=== PATIENT | male | born 1950 | race Caucasian/White ===

== ENCOUNTER 2017-07-11 21:48 | Observation (INO) | payer MEDICAID, OTHER ==
[~2017-07-11] VITALS: Ht 170.2 cm; Wt 72.0 kg
[~2017-07-11 21:48] MED LIST: ASPI81CH CHEW; ATOR40TA16 PO; CARV3.12 PO; CITA40TA4 PO; CLON1TAB PO; DICL1GEL TOPICAL; HYDR-3533 PO; IPRAAER INH; LISI2.5T3 PO; NORC5TAB PO; SPIRCAP INH; SYMB160A INH; TAMS5CAP PO; TIMO0.255 EACH EYE; WALKER WHEELS/F1 MIS
[2017-07-11 21:54] VITALS: BP 135/69; PULSE 59; RESP 18; TEMP 98.9; O2SAT 99
[2017-07-11 21:55] VITALS: RESP 18; O2SAT 97
[2017-07-11] MEDS ORDERED: SODIUM CHLORIDE 0.9% FLUSH 10 ML FLUSH IVF PRN (22:30)
--- NOTE | 2017-07-11 23:05 | RADRPT ---
EXAM DATE/TIME: 07/11/2017 22:34 [facility] COMPARISON: No previous studies available for comparison. INDICATIONS : Weakness, left sided facial numbness. RADIATION DOSE: 69.15 CTDIvol (mGy) MEDICAL HISTORY : Hypertension. SURGICAL HISTORY : cervical fusion, neuro stimulator ENCOUNTER: Initial ACUITY: 1 day PAIN SCALE: 7/10 LOCATION: cranial TECHNIQUE: Multiple contiguous axial images were obtained of the head. Using automated exposure control and adj ustment of the mA and/or kV according to patient size, radiation dose was kept as low as reasonably a chievable to obtain optimal diagnostic quality images. DICOM format image data is available electro nically for review and comparison. FINDINGS: CEREBRUM: The ventricles are normal for age. No evidence of midline shift, mass lesion, hemorrhage or acute in farction. No extra-axial fluid collections are seen. POSTERIOR FOSSA: The cerebellum and brainstem are intact. The 4th ventricle is midline. The cerebellopontine angle i s unremarkable. EXTRACRANIAL: There is opacification of the left frontal sinus and chronic appearing sclerotic change involving the left mastoid SKULL: The calvaria is intact. No evidence of skull fracture. CONCLUSION: No acute intracranial findings. Sinus and left-sided mastoid disease Juliocesar Poole MD on July 11, 2017 at 23:02 Board Certified Radiologist. This report was verified electronically.
[2017-07-11 23:40] LABS: AUTOMATED NEUTROPHIL # 4.6 TH/MM3 (1.8-7.7); BASOPHIL # 0.1 TH/MM3 (0-0.2); BASOPHIL % 1.4 % (0.0-2.0); EOSINOPHIL # 0.3 TH/MM3 (0-0.4); HEMATOCRIT 33.7 % (39.0-51.0); HEMO FLAGS DIFF FINAL; LYMPH % 26.3 % (9.0-44.0); LYMPHOCYTE # 2.1 TH/MM3 (1.0-4.8); MEAN CELL VOLUME 94.8 FL (80.0-100.0); MEAN CORPUSCULAR HEMOGLOBIN 31.2 PG (27.0-34.0); MEAN CORPUSCULAR HGB CONC 32.9 % (32.0-36.0); MONO % 9.9 % (0.0-8.0); NEUT % 58.4 % (16.0-70.0); PLATELET COUNT 218 TH/MM3 (150-450); RED BLOOD COUNT 3.55 MIL/MM3 (4.50-5.90); RED CELL DISTRIBUTION WIDTH 14.1 % (11.6-17.2); WHITE BLOOD COUNT 7.9 TH/MM3 (4.0-11.0)
[2017-07-11 23:51] LABS: APTT (PATIENT) 31.5 SEC (24.3-30.1); PROTHROMBIN TIME - PATIENT 10.5 SEC (9.8-11.6)
[2017-07-12] VITALS (9 sets, daily range): BP systolic 99–124; BP diastolic 55–62; PULSE 65–81; RESP 17–21; TEMP 97.9–98.7; O2SAT 94–98
[2017-07-12 00:02] LABS: BICARBONATE 30.7 MEQ/L (21.0-32.0); POTASSIUM 3.5 MEQ/L (3.5-5.1)
--- NOTE | 2017-07-12 01:08 | PD ---
HPI Chief Complaint: Numbness/Tingling Time Seen by Provider: 22:34 Travel History International Travel<30 days: No Contact w/Intl Traveler<30days: No Traveled to known affect area: No History of Present Illness HPI 67-year-old male complains of numbness sensation in the left side of face and left hand. Patient has history of chronic neck pain with intermittent numbness on the left hand in the past. Patient states that the numbness sensation left face is new this evening. Patient states that he started having numbness sensation on the left side of face about an hour and a half prior to coming to the emergency room. Patient states that the numbness sensation in the left side of face involving the forehead and cheek area. Patient states that the numbness sensation resolving since then. Patient states that he only has a small area of numbness on the left cheek now. Patient denies any headache. Patient denies any visual change. Patient states that he has intermittent numbness on the left hand intermittent since 2004. Patient status post C3-C4 cervical spine fusion. Patient has history hypertension, hyperlipidemia. Patient quit smoking many years ago. Patient taking aspirin 81 mg daily. PFSH Past Medical History Anxiety: Yes High Cholesterol: Yes COPD: Yes Diminished Hearing: No Hypertension: Yes Musculoskeletal: Yes (chronic pain) Tetanus Vaccination: Unknown Influenza Vaccination: Yes Past Surgical History Neurologic Surgery: Yes (neuro stimulator) Thoracic Surgery: Yes (L4 & L5 laminectomy) Other Surgery: Yes (MORPHINE PUMP) Social History Alcohol Use: No Tobacco Use: No Substance Use: No Allergies-Medications (Allergen,Severity, Reaction): Coded Allergies: MRI PRECAUTION (Verified Adverse Reaction, Severe, 07/12/17) Patient has a non compatible neurostimulator. Patient has a Rizwan mini [place] neurostimulator. eg/07/12/2017 Reported Meds & Prescriptions Reported Meds & Active Scripts Active Walker with Front Wheels (Device) 1 Mis Mis 1 Ea .XX DIRECTED PRN [place] (Hydrocodone-Acetaminophen) 5-325 mg Tab 1 Tab PO Q6H PRN Reported Vistaril (Hydroxyzine Pamoate) 25 Mg Cap 25 Mg PO HS Spiriva Handihaler (Tiotropium Inh) 18 Mcg Cap 18 Mcg INH DAILY 1 capsule = 18 mcg Combivent Respimat Inh (Ipratropium-Albuterol Inh) 20-100 Alf/Act Aero 1 Puff INH QID Citalopram (Citalopram Hydrobromide) 40 Mg Tab 40 Mg PO DAILY Atorvastatin (Atorvastatin Calcium) 40 Mg Tab 40 Mg PO HS Lisinopril 2.5 Mg Tab 2.5 Mg PO DAILY Carvedilol 3.125 Mg Tab 3.125 Mg PO BID Voltaren Topical (Diclofenac Topical) 1% Gel 1 Applic TOPICAL QID Flomax (Tamsulosin HCl) 0.4 Mg Cap 0.4 Mg PO HS Aspirin 81 Mg Chew 81 Mg CHEW DAILY Review of Systems General / Constitutional: No: Fever Eyes: No: Visual changes HENT: No: Headaches Cardiovascular: No: Chest Pain or Discomfort Respiratory: No: Shortness of Breath Gastrointestinal: No: Abdominal Pain Genitourinary: No: Dysuria Musculoskeletal: No: Pain Skin: No Rash Neurologic: No: Weakness Psychiatric: No: Depression Endocrine: No: Polydipsia Hematologic/Lymphatic: No: Easy Bruising Physical Exam Narrative GENERAL: Well-nourished, well-developed patient. SKIN: Focused skin assessment warm/dry. HEAD: Normocephalic. EYES: No scleral icterus. No injection or drainage. NECK: Supple, trachea midline. No JVD or lymphadenopathy. CARDIOVASCULAR: Regular rate and rhythm without murmurs, gallops, or rubs. RESPIRATORY: Breath sounds equal bilaterally. No accessory muscle use. GASTROINTESTINAL: Abdomen soft, non-tender, nondistended. MUSCULOSKELETAL: No cyanosis, or edema. BACK: Nontender without obvious deformity. No CVA tenderness. Neurologic exam: Patient awake and alert oriented 3. Patient has mild decrease in light touch sensation on the left cheek area and left hand. Full range motion of all extremity. Data Data Last Documented VS Vital Signs Date Time Temp Pulse Resp B/P (MAP) Pulse Ox O2 Delivery O2 Flow Rate FiO2 07/12/17 00:32 67 18 99/58 (72) 98 Room Air 07/11/17 21:54 98.9 Orders Orders Electrocardiogram (07/11/17 22:30) Prothrombin Time / Inr (Pt) (07/11/17 22:30) Act Partial Throm Time (Ptt) (07/11/17 22:30) Complete Blood Count With Diff (07/11/17 22:30) Basic Metabolic Panel (Bmp) (07/11/17 22:30) Ct Brain W/O Iv Contrast(Rout) (07/11/17 22:30) Ecg Monitoring (07/11/17 22:30) Iv Access Insert/Monitor (07/11/17 22:30) Oximetry (07/11/17 22:30) Sodium Chloride 0.9% Flush (Ns Flush) (07/11/17 22:30) Consult Neurology (07/12/17 ) Cta Brain W Iv Contrast W 3d (07/12/17 ) Cta Neck W Iv Contrast W 3d (07/12/17 ) Aspirin (Aspirin) (07/12/17 02:00) Clopidogrel (Plavix) (07/12/17 02:00) (Hub Use Only)Inp Phy Cons/Ref (07/12/17 ) Admit Order (Ed Use Only) (07/12/17 02:10) Labs Laboratory Tests Test 07/11/17 23:23 White Blood Count 7.9 TH/MM3 Red Blood Count 3.55 MIL/MM3 Hemoglobin 11.1 GM/DL Hematocrit 33.7 % Mean Corpuscular Volume 94.8 FL Mean Corpuscular Hemoglobin 31.2 PG Mean Corpuscular Hemoglobin Concent 32.9 % Red Cell Distribution Width 14.1 % Platelet Count 218 TH/MM3 Mean Platelet Volume 8.7 FL Neutrophils (%) (Auto) 58.4 % Lymphocytes (%) (Auto) 26.3 % Monocytes (%) (Auto) 9.9 % Eosinophils (%) (Auto) 4.0 % Basophils (%) (Auto) 1.4 % Neutrophils # (Auto) 4.6 TH/MM3 Lymphocytes # (Auto) 2.1 TH/MM3 Monocytes # (Auto) 0.8 TH/MM3 Eosinophils # (Auto) 0.3 TH/MM3 Basophils # (Auto) 0.1 TH/MM3 CBC Comment DIFF FINAL Differential Comment Prothrombin Time 10.5 SEC Prothromb Time International Ratio 1.0 RATIO Activated Partial Thromboplast Time 31.5 SEC Blood Urea Nitrogen 12 MG/DL Creatinine 0.81 MG/DL Random Glucose 100 MG/DL Calcium Level 8.2 MG/DL Sodium Level 137 MEQ/L Potassium Level 3.5 MEQ/L Chloride Level 102 MEQ/L Carbon Dioxide Level 30.7 MEQ/L Anion Gap 4 MEQ/L Estimat Glomerular Filtration Rate 96 ML/MIN MDM Medical Decision Making Medical Screen Exam Complete: Yes Emergency Medical Condition: Yes Interpretation(s) Last Impressions Head CT 07/11/170 Signed Impressions: Service Date/Time: Tuesday, July 11, 2017 22:34 - CONCLUSION: No acute intracranial findings. Sinus and left-sided mastoid disease Juliocesar Poole MD 1:07 AM. CBC within normal limit. BMP within normal limit. Differential Diagnosis Differential diagnosis including neuralgia, TIA, CVA. Narrative Course 67-year-old male with transient left-sided facial numbness and left hand numbness. Diagnosis Primary Impression: TIA (transient ischemic attack) Qualified Codes: G45.9 - Transient cerebral ischemic attack, unspecified Additional Impression: Neuralgia Admitting Information Admitting Physician Requests: Observation Fabien Woodward MD Jul 12, 2017 01:08
[2017-07-12] MEDS ORDERED: CLOPIDOGREL 75 MG TAB PO ONE (02:00)
[2017-07-12] MEDS ORDERED: ASPIRIN 325 MG TAB PO ONE (02:00)
[2017-07-12] MEDS ORDERED: VIST25CA PO (02:16)
[2017-07-12] MEDS ORDERED: GLUCAGON 1 MG/ML VIAL OTHER PRN (02:30)
[2017-07-12] MEDS ORDERED: DEXTROSE 50% IN WATER 50 ML VIAL(D50) IV PUSH PRN (02:30)
[2017-07-12] MEDS ORDERED: SODIUM CHLORIDE 0.9% FLUSH 5 ML FLUSH IV FLUSH PRN (02:30)
[2017-07-12] MEDS ORDERED: IOHEXOL 350 MG/ML 10 ML VIAL (for RAD DIAG) IVCONTRAST ONE (02:32)
--- NOTE | 2017-07-12 03:08 | RADRPT ---
EXAM DATE/TIME: 07/12/2017 02:29 [facility] COMPARISON: CT BRAIN W/O CONTRAST, July 11, 2017, 22:34. INDICATIONS : Left side facial numbness for one day, evaluate for thrombosis. IV CONTRAST: 75 cc Omnipaque 350 (iohexol) IV ; Cumulative dose for multiple exams. RADIATION DOSE: 28.69 CTDIvol (mGy) ; Combined studies MEDICAL HISTORY : Hypertension. SURGICAL HISTORY : cervical fusion, neurostimulator ENCOUNTER: Initial ACUITY: 1 day PAIN SCALE: 6/10 LOCATION: neck Elevated flow velocities and ICA/CCA ratios have been found to correlate with increased degrees of vessel stenosis, calculated as percentage of diameter relative to a normal segment of distal ICA/CCA. TECHNIQUE: Volumetric scanning was performed using a multirow detector CT scanner. The data was post processed with a variety of visualization algorithms including full-volume maximum intensity projection, multip lanar sliding thin-slab reformation, curved-planar reformation, and surface-rendering techniques. Us ing automated exposure control and adjustment of the mA and/or kV according to patient size, radiatio n dose was kept as low as reasonably achievable to obtain optimal diagnostic quality images. DICOM f ormat image data is available electronically for review and comparison. FINDINGS: AORTIC ARCH: There is a three-vessel origin of the great vessels from the aorta. No evidence of ostial narrowing. RIGHT CAROTID: The common carotid artery is intact. The carotid bulb has a normal configuration without ulceration o r narrowing. The internal carotid artery lumen is smooth without stenosis. The external carotid altaf ry is intact. LEFT CAROTID: The common carotid artery is intact. The carotid bulb has a normal configuration without ulceration or narrowing. The internal carotid artery lumen is smooth without stenosis. The external carotid ar leo is intact. VERTEBRALS: The vertebral arteries are patent bilaterally. The left side is diminutive.. CONCLUSION: No evidence of carotid stenosis. Juliocesar Poole MD on July 12, 2017 at 3:03 Board Certified Radiologist. This report was verified electronically.
--- NOTE | 2017-07-12 03:10 | RADRPT ---
EXAM DATE/TIME: 07/12/2017 02:29 [facility] COMPARISON: No previous studies available for comparison. INDICATIONS : Left side facial numbness for one day, evaluate for thrombosis. IV CONTRAST: 75 cc Omnipaque 350 (iohexol) IV ; Cumulative dose for multiple exams. RADIATION DOSE: 28.69 CTDIvol (mGy) ; Combined studies MEDICAL HISTORY : Hypertension. SURGICAL HISTORY : neurostimulator, cervical fusion ENCOUNTER: Initial ACUITY: 1 day PAIN SCALE: 4/10 LOCATION: cranial TECHNIQUE: Volumetric scanning was performed using a multi-row detector CT scanner. The data was post processed with a variety of visualization algorithms including full volume maximum intensity projection, multi -planar sliding thin slab reformation, curved planar reformation, and surface rendering techniques. Using automated exposure control and adjustment of the mA and/or kV according to patient size, radiat ion dose was kept as low as reasonably achievable to obtain optimal diagnostic quality images. DICO M format image data is available electronically for review and comparison. FINDINGS: There is excellent visualization of the major intracranial arteries out to the second-order branch ve ssels. There is no evidence for aneurysm, vessel truncation or stenosis, and no evidence for vascula r malformation. The left posterior cerebral artery arises in fashion. CONCLUSION: Normal study Juliocesar Poole MD on July 12, 2017 at 3:07 Board Certified Radiologist. This report was verified electronically.
--- NOTE | 2017-07-12 05:33 | HHI.HP ---
HPI Service [facility] Primary [facility] Physician Unknown Admission Diagnosis TIA. Neuralgia. Diagnoses: Chief Complaint: Left facial numbness Travel History International Travel<30 Days: No Contact w/Intl Traveler <30 Da: No Traveled to Known Affected Are: No History of Present Illness Written by MANUEL Foley acting as scribe for [Kapil] on 07/12/17 at 05 :26. 67 y/o male with a history of HTN, HLD, COPD, and a pH presented to the ED with complaints of left facial numbness. He states he woke up about 8:30 PM and his left face, forehead and jaw were numb. He felt lethargic and had trouble speaking. Upon arrival to ER his symptoms resolved slightly and currently he is , acting normal. He does complain of numbness and tingling and both his hands, but this is not new for him. He denies any chest pain, shortness breath, fever or chills. He states he follows with Dr. Whitaker for neurology. Review of Systems Except as stated in HPI: all other systems reviewed are Neg Past Family Social History Past Medical History HTN COPD BPH HLD Past Surgical History C4-T1 fusion Trieger finger surgery Bilateral hip replacement Nasal surgery Appendectomy Reported Medications Reported Meds & Active Scripts Active Walker with Front Wheels (Device) 1 Mis Mis 1 Ea .XX DIRECTED PRN [place] (Hydrocodone-Acetaminophen) 5-325 mg Tab 1 Tab PO Q6H PRN Reported Vistaril (Hydroxyzine Pamoate) 25 Mg Cap 25 Mg PO HS Spiriva Handihaler (Tiotropium Inh) 18 Mcg Cap 18 Mcg INH DAILY 1 capsule = 18 mcg Combivent Respimat Inh (Ipratropium-Albuterol Inh) 20-100 Chcf/Act Aero 1 Puff INH QID Citalopram (Citalopram Hydrobromide) 40 Mg Tab 40 Mg PO DAILY Atorvastatin (Atorvastatin Calcium) 40 Mg Tab 40 Mg PO HS Lisinopril 2.5 Mg Tab 2.5 Mg PO DAILY Carvedilol 3.125 Mg Tab 3.125 Mg PO BID Voltaren Topical (Diclofenac Topical) 1% Gel 1 Applic TOPICAL QID Flomax (Tamsulosin HCl) 0.4 Mg Cap 0.4 Mg PO HS Aspirin 81 Mg Chew 81 Mg CHEW DAILY Allergies: Coded Allergies: No Known Allergies (Unverified , 07/11/17) Active Ordered Medications Current Medications Medications (Trade) Dose Ordered Sig/Arlene Route Start Time Stop Time Status Last Admin (NS Flush) 2 ml UNSCH PRN IVF 07/11/17 22:30 (NS Flush) 2 ml BID IV FLUSH 07/12/17 09:00 (NS Flush) 2 ml UNSCH PRN IV FLUSH 07/12/17 02:30 (NovoLOG SUPPLEMENTAL SCALE) 1 ACHS SQ 07/12/17 08:00 (D50w (Vial) Inj) 50 ml UNSCH PRN IV PUSH 07/12/17 02:30 (Glucagon Inj) 1 mg UNSCH PRN OTHER 07/12/17 02:30 Family History Family history significant for DM and heart disease Social History Tobacco use: Quit 10 years ago Alcohol use: Quit 10 years ago Physical Exam Vital Signs Vital Signs Date Time Temp Pulse Resp B/P (MAP) Pulse Ox O2 Delivery O2 Flow Rate FiO2 07/12/17 03:27 98.7 68 17 106/55 (72) 95 07/12/17 03:00 07/12/17 00:32 67 18 99/58 (72) 98 Room Air 07/11/17 21:55 18 97 Room Air 07/11/17 21:54 98.9 59 18 135/69 (91) 99 Physical Exam GENERAL: This is a well-nourished, well-developed patient, in no apparent distress. SKIN: No rashes, ecchymoses or lesions. Cool and dry. HEAD: Atraumatic. Normocephalic. EYES: Pupils equal round and reactive. ENT: Nose without bleeding, purulent drainage or septal hematoma. Airway patent. NECK: Trachea midline. No JVD or lymphadenopathy. CARDIOVASCULAR: Regular rate and rhythm without murmurs, gallops, or rubs. RESPIRATORY: Clear to auscultation. Breath sounds equal bilaterally. No wheezes , rales, or rhonchi. GASTROINTESTINAL: Abdomen soft, non-tender, nondistended. No guarding. MUSCULOSKELETAL: +1 bilateral lower extremity edema. No joint tenderness, effusion, or edema noted. No calf tenderness. NEUROLOGICAL: Awake and alert. Cranial nerves II through XII intact. Motor and sensory grossly within normal limits. 4 out of 5 muscle strength in left upper extremity. 5 Out of 5 muscle strength in all other muscle groups. Normal speech. Laboratory Laboratory Tests Test 07/11/17 23:23 White Blood Count 7.9 Red Blood Count 3.55 Hemoglobin 11.1 Hematocrit 33.7 Mean Corpuscular Volume 94.8 Mean Corpuscular Hemoglobin 31.2 Mean Corpuscular Hemoglobin Concent 32.9 Red Cell Distribution Width 14.1 Platelet Count 218 Mean Platelet Volume 8.7 Neutrophils (%) (Auto) 58.4 Lymphocytes (%) (Auto) 26.3 Monocytes (%) (Auto) 9.9 Eosinophils (%) (Auto) 4.0 Basophils (%) (Auto) 1.4 Neutrophils # (Auto) 4.6 Lymphocytes # (Auto) 2.1 Monocytes # (Auto) 0.8 Eosinophils # (Auto) 0.3 Basophils # (Auto) 0.1 CBC Comment DIFF FINAL Differential Comment Prothrombin Time 10.5 Prothromb Time International Ratio 1.0 Activated Partial Thromboplast Time 31.5 Blood Urea Nitrogen 12 Creatinine 0.81 Random Glucose 100 Calcium Level 8.2 Sodium Level 137 Potassium Level 3.5 Chloride Level 102 Carbon Dioxide Level 30.7 Anion Gap 4 Estimat Glomerular Filtration Rate 96 Result Diagram: 07/11/17232207/11/172322 Imaging Last Impressions Neck CTA 07/12/17 0000 Signed Impressions: Service Date/Time: July 02:29 - CONCLUSION: No evidence of carotid stenosis. Juliocesar Poole MD Head CTA 07/12/17 0000 Signed Impressions: Service Date/Time: July 02:29 - CONCLUSION: Normal study Juliocesar Poole MD Head CT 07/11/170 Signed Impressions: Service Date/Time: Tuesday, July 11, 2017 22:34 - CONCLUSION: No acute intracranial findings. Sinus and left-sided mastoid disease MD Sigifredo Bhatia VTE Risk Assessment Caprini VTE Risk Assessment: Mod/High Risk (score >= 2) Caprini Risk Assessment Model Point Value = 1 Point Value = 2 Point Value = 3 Point Value = 5 Age 41-60 Minor surgery BMI > 25 kg/m2 Swollen legs Varicose veins or History of unexplained or recurrent spontaneous Oral contraceptives or hormone replacement Sepsis (< 1 month) Serious lung disease, including pneumonia (< 1 month) Abnormal pulmonary function Acute myocardial infarction Congestive heart failure (< 1 month) History of inflammatory bowel disease Medical patient at bed rest Age 61-74 Arthroscopic surgery Major open surgery (> 45 min) Laparoscopic surgery (> 45 min) Malignancy Confined to bed (> 72 hours) Immobilizing plaster cast Central venous access Age >= 75 History of VTE Family history of VTE Factor V Leiden Prothrombin [id number] Lupus anticoagulant Anticardiolipin antibodies Elevated serum homocysteine Heparin-induced thrombocytopenia Other congenital or acquired thrombophilia Stroke (< 1 month) Elective arthroplasty Hip, pelvis, or leg fracture Acute spinal cord injury (< 1 month) Prophylaxis Regimen Total Risk Factor Score Risk Level Prophylaxis Regimen 0-1 Low Early ambulation 2 Moderate Order ONE of the following: *Sequential Compression Device (SCD) *Heparin 5000 units SQ BID 3-4 Higher Order ONE of the following medications: *Heparin 5000 units SQ TID *Enoxaparin/Lovenox 40 mg SQ daily (WT < 150 kg, CrCl > 30 mL/min) *Enoxaparin/Lovenox 30 mg SQ daily (WT < 150 kg, CrCl > 10-29 mL/min) *Enoxaparin/Lovenox 30 mg SQ BID (WT < 150 kg, CrCl > 30 mL/min) AND/OR *Sequential Compression Device (SCD) 5 or more Highest Order ONE of the following medications: *Heparin 5000 units SQ TID (Preferred with Epidurals) *Enoxaparin/Lovenox 40 mg SQ daily (WT < 150 kg, CrCl > 30 mL/min) *Enoxaparin/Lovenox 30 mg SQ daily (WT < 150 kg, CrCl > 10-29 mL/min) *Enoxaparin/Lovenox 30 mg SQ BID (WT < 150 kg, CrCl > 30 mL/min) AND *Sequential Compression Device (SCD) Assessment and Plan Problem List: (1) TIA (transient ischemic attack) ICD Code: G45.9 - Transient cerebral ischemic attack, unspecified Status: Acute (2) Neuralgia ICD Code: M79.2 - Neuralgia and neuritis, unspecified Status: Acute Assessment and Plan 67 y/o male with a history of HTN, HLD, COPD, and a BPH presented to the ED with complaints of left facial numbness. TIA with neuralgia Head CT reviewed and shows no acute abnormalities. CTA neck reviewed and is unremarkable, CTA head reviewed and is unremarkable. -2-D echo ordered -Consult neurology for recommendations -Lipid profile ordered -Neuro checks Parkinson's, currently being worked up -Will order home medications once verified by pharmacy, patient is unsure of dosage Hypertension, chronic -Allow for permissive hypertension until evaluated by neurology DVT prophylaxis: SCDs Discussed Condition With Patient and RN Problem Qualifiers (1) TIA (transient ischemic attack): Qualified Codes: G45.9 - Transient cerebral ischemic attack, unspecified Beba Stein Jul 12, 2017 05:33
[2017-07-12] MEDS ORDERED: ACETAMINOPHEN/HYDROcodone 325 MG/5 MG TAB PO PRN (07:45)
[2017-07-12] MEDS: INSULIN ASPART SUPPLEMENTAL SCALE SQ SCH ×4 (08:00→21:00)
[2017-07-12] MEDS: SODIUM CHLORIDE 0.9% FLUSH 5 ML FLUSH IV FLUSH SCH ×2 (09:00→21:00)
[2017-07-12] MEDS: CITALOPRAM HYDROBROMIDE 40 MG TAB PO SCH (09:59)
[2017-07-12] MEDS: ASPIRIN 81 MG CHEW TAB CHEW SCH (09:59)
[2017-07-12] MEDS: SODIUM CHLOR 0.9% 1000 ML INJ 1,000 ML IV SCH ×2 (10:00→19:40)
[2017-07-12] MEDS: TIOTROPIUM BROMIDE 18 MCG INH INH SCH (10:00)
[2017-07-12] MEDS: ALBUTEROL SULFATE 90 MCG/ACT HFA 8 GM INHALER INH SCH ×4 (10:00→21:34)
--- NOTE | 2017-07-12 12:13 | EKG ---
Date Performed: 07/11/2017 Time Performed: 23:25:15 PTAGE: 67 years EKG: Sinus rhythm LOW QRS VOLTAGE IN PRECORDIAL LEADS SEPTAL MYOCARDIAL INFARCTION ABNORMAL ECG NO PREVIOUS TRACING DOCTOR: Emeli Hoffmann Interpretating Date/Time 07/12/2017 12:11:35
--- NOTE | 2017-07-12 12:32 | HHI.PR ---
Subjective Remarks Follow-up for transient left facial paresthesias. The patient states that he has chronic neck and spine problems and has chronic tingling of his fingers. He states that yesterday evening about 5 PM he took a [place] and a Vistaril. He states he went to sleep about 8 PM and woke up about 8:30 noticing tingling on the left side of his face with possible slurred speech. He states the symptoms lasted approximately 45 minutes and have resolved. He denies any swallowing difficulties. He did have his Klonopin changed from scheduled to as needed about a week ago in favor of Vistaril. Otherwise recent medication changes included stopping Aricept 2 weeks ago and starting Sinemet. Agreeable for [facility]. Objective Vitals Vital Signs Date Time Temp Pulse Resp B/P (MAP) Pulse Ox O2 Delivery O2 Flow Rate FiO2 07/12/17 12:07 97.9 73 18 124/62 (82) 98 07/12/17 08:06 98.4 70 18 113/58 (76) 95 07/12/17 03:27 98.7 68 17 106/55 (72) 95 07/12/17 03:00 07/12/17 00:32 67 18 99/58 (72) 98 Room Air 07/11/17 21:55 18 97 Room Air 07/11/17 21:54 98.9 59 18 135/69 (91) 99 Result Diagram: 07/11/17232207/11/172322 Imaging Last Impressions Neck CTA 07/12/17 0000 Signed Impressions: Service Date/Time: July 02:29 - CONCLUSION: No evidence of carotid stenosis. Juliocesar Poole MD Head CTA 07/12/17 0000 Signed Impressions: Service Date/Time: July 02:29 - CONCLUSION: Normal study Juliocesar Poole MD Head CT 07/11/170 Signed Impressions: Service Date/Time: Tuesday, July 11, 2017 22:34 - CONCLUSION: No acute intracranial findings. Sinus and left-sided mastoid disease Juliocesar Poole MD Objective Remarks GENERAL: Well-developed well-nourished. In no acute distress. SKIN: Warm and dry. No lesions noted. HEENT: Normocephalic. Pupils equal and round. Mucous membranes pink and moist. CARDIOVASCULAR: Regular rate and rhythm. No murmur appreciated. RESPIRATORY: No accessory muscle use. Clear to auscultation. Breath sounds equal bilaterally. GASTROINTESTINAL: Abdomen soft, non-tender, nondistended. Bowel sounds x4. MUSCULOSKELETAL: No obvious deformities. No clubbing or cyanosis. No edema. NEUROLOGICAL: Awake and alert. Moves upper and lower extremities spontaneously. Normal speech. No facial asymmetry. Strength 5/5 in the upper extremities and 3/5 in the lower extremities. Subjectively increased sensation on the left side of the face. PSYCHIATRIC: Appropriate mood and affect; insight and judgment normal. A/P Problem List: (1) TIA (transient ischemic attack) ICD Code: G45.9 - Transient cerebral ischemic attack, unspecified Status: Acute (2) Neuralgia ICD Code: M79.2 - Neuralgia and neuritis, unspecified Status: Chronic Assessment and Plan 67 y/o male with a history of HTN, HLD, COPD, and a BPH presented to the ED with complaints of left facial numbness. Transient left facial paresthesias and slurred speech: Possible TIA. Doesn't really sound like medication effect. Reviewed: Head CT shows no acute abnormalities. CTA neck shows no carotid stenosis. CTA head normal. -2-D echo performed, results been -Consulted neurology, appreciate input -Hemoglobin A1c pending. Lipid profile ordered. -Neuro checks -Continue aspirin and statin -PT/OT/ST -IVF Recent diagnosis of probable Parkinson's disease: -Reconcile and resume home dose of Sinemet Hypertension: Chronic. BP is actually soft. -Hold home antihypertensives with low blood pressure and permissive hypertension for now Other chronic medical conditions include COPD, chronic pain, depression, anxiety : Stable at this time and will continue home medications as indicated DVT prophylaxis: SCDs Discharge Planning Follow-up neurology recommendations. C PT at discharge, case management consulted. Problem Qualifiers (1) TIA (transient ischemic attack): Qualified Codes: G45.9 - Transient cerebral ischemic attack, unspecified Gregorio Marquez Jul 12, 2017 12:32
--- NOTE | 2017-07-12 12:35 | ECHRPT ---
Indication: Transient cerebral ischemic attack, unspecified CONCLUSIONS Normal left ventricular size and wall thickness. The left ventricular systolic function is normal wi th an estimated ejection fraction in the range of 60-65%. Left ventricular diastolic function parameters a re normal. The right atrium is not well visualized. Trace mitral valve regurgitation. There is trace tricuspid valve regurgitation. The pulmonary valve is not well visualized. There is no pericardial effusion. BP: 106 / 55 HR: 68 Rhythm: MEASUREMENTS (Male / Female) Normal Values Technical Quality:Fair 2D ECHO LV Diastolic Diameter PLAX 4.3 cm 4.2 - 5.9 / 3.9 - 5.3 cm LV Systolic Diameter PLAX 3.0 cm IVS Diastolic Thickness 1.0 cm 0.6 - 1.0 / 0.6 - 0.9 cm LVPW Diastolic Thickness 0.9 cm 0.6 - 1.0 / 0.6 - 0.9 cm LV Relative Wall Thickness 0.4 RV Internal Dim ED PLAX 2.9 cm M-MODE Aortic Root Diameter MM 3.8 cm LA Systolic Diameter MM 4.1 cm LA Ao Ratio MM 1.1 AV Cusp Separation MM 1.8 cm DOPPLER Mitral E Point Velocity 124.0 cm/s Mitral A Point Velocity 107.0 cm/s Mitral E to A Ratio 1.2 TR Peak Velocity 242.0 cm/s TR Peak Gradient 23.4 mmHg Right Atrial Pressure 10.0 mmHg Pulmonary Artery Systolic Pressu 33.4 mmHg Right Ventricular Systolic Press 33.4 mmHg FINDINGS LEFT VENTRICLE Normal left ventricular size and wall thickness. The left ventricular systolic function is normal wi th an estimated ejection fraction in the range of 60-65%. Left ventricular diastolic function parameters a re normal. RIGHT VENTRICLE Normal right ventricular size and systolic function. LEFT ATRIUM The left atrial size is normal. RIGHT ATRIUM The right atrium is not well visualized. ATRIAL SEPTUM Normal atrial septal thickness without atrial level shunting by limited color doppler interrogation. AORTA The aortic root and proximal ascending aorta are normal in size on limited imaging. MITRAL VALVE Trace mitral valve regurgitation. AORTIC VALVE Trileaflet aortic valve. No aortic valve stenosis or regurgitation. TRICUSPID VALVE There is trace tricuspid valve regurgitation. PULMONARY VALVE The pulmonary valve is not well visualized. VESSELS The inferior vena cava is normal in size. PERICARDIUM There is no pericardial effusion. Sunny Olivia MD, FACC (Electronically Signed) Final Date:12 July 2017 12:34
--- NOTE | 2017-07-12 15:35 | MB ---
cc: NOEL ACEVES M.D. DATE OF CONSULTATION 07/12/17 REASON FOR CONSULTATION Left facial numbness. HISTORY OF PRESENT ILLNESS Mr. Collier is a 67-year-old man who the past couple of days had noted numbness in the left side of his face. He has no other neurologic symptoms at the present time. PERSONAL HISTORY History of dementia, hypertension, COPD, BPH, C4-T1 fusion. He does have chronic numbness in the hands and feet bilaterally. MEDICATIONS Current medications are: 1. Hydroxyzine. 2. Lipitor. 3. Aspirin 81 milligrams daily. 4. Celexa. 5. Spiriva. 6. ProAir. 7. NovoLog insulin. 8. [place] for pain. NEUROLOGIC EXAMINATION NEURO: Higher cortical functions, he is alert, oriented. Speech is fluent. Follows commands. Cranial nerves intact except for some subjective decreased sensation left face. There is no facial droop. The extraocular movement is normal. Motor exam he has 5/5 strength of all groups in both upper and lower extremities. There is no drift. ____ skills within normal limits. Reflexes symmetric. Sensation is diminished in both feet in a stocking fashion. Reflexes are 1+ symmetric, except ankle reflexes which are absent. IMAGING STUDIES CT of the brain, no acute change present. CT angiogram of the neck is normal. CTA of the head is normal. LABORATORY DATA White count 7900. Hemoglobin 11.1, hematocrit 33.7%, platelet count 218,000, PT 10.5, INR 1.0, APTT 31.5. Sodium was 137, potassium 3.5, chloride 102, CO2 30, BUN is 12. IMPRESSION Left facial numbness, rule out lacunar stroke, rule out early Mcclure's palsy, although I do not see any facial weakness. RECOMMENDATIONS I would like to proceed with an MRI of the brain just to rule out lacunar stroke. MD DIEGO Law[place]/ILYA /2:43 PM /3:16 PM
[2017-07-12 15:59] LABS: HEMOGLOBIN A1a 1.3 %; HEMOGLOBIN A1b 1.7 %; HEMOGLOBIN Ao 85.3 %; HEMOGLOBIN LA1C 1.9 %; HEMOGLOBIN P3 3.4 %
[2017-07-12] MEDS ORDERED: ATORVASTATIN 40 MG TAB PO SCH (21:00)
[2017-07-12] MEDS ORDERED: hydrOXYzine PAMOATE 25 MG CAP PO SCH (21:00)
[2017-07-13 00:10] VITALS: BP 130/67; PULSE 72; RESP 18; TEMP 97.7; O2SAT 94
[2017-07-13 03:14] VITALS: BP 115/60; PULSE 73; RESP 18; TEMP 99; O2SAT 94
[2017-07-13] MEDS: INSULIN ASPART SUPPLEMENTAL SCALE SQ SCH (08:00)
[2017-07-13 08:15] VITALS: BP 119/25; PULSE 73; RESP 20; TEMP 97.9; O2SAT 96
--- NOTE | 2017-07-13 08:20 | HHI.FF ---
Face to Face Verification Diagnosis: (1) TIA (transient ischemic attack) (2) Neuralgia Physical Therapy Order: Evaluate and Treat, Improve ambulation, Strength and gait training Home Health Nursing Order: Medical education Signs/symptoms of disease process Medication education-adverse effect Nursing assessment with vital signs I have seen patient Anushka Collier on 07/13/17. My clinical findings support the need for the requested home health care services because: Ltd mobility - disease progression Deconditioned w/ increased weakness I certify that my clinical findings support that this patient is homebound because: Unsteady gait/balance Gregorio Marquez Jul 13, 2017 08:20
--- NOTE | 2017-07-13 08:24 | HHI.PR ---
Subjective Remarks Follow-up for transient left facial paresthesias and slurred speech. The patient is doing well today. He has no acute complaints. He states that the facial numbness and slurred speech is still resolved. He states his doctor recently mentioned about taking him off of blood pressure medication because his pressure was running low. He does have a blood pressure machine at home where he can check his pressure. Objective Vitals Vital Signs Date Time Temp Pulse Resp B/P (MAP) Pulse Ox O2 Delivery O2 Flow Rate FiO2 07/13/17 08:15 97.9 73 20 119/25 (56) 96 07/13/17 03:14 99.0 73 18 115/60 (78) 94 07/13/17 00:10 97.7 72 18 130/67 (88) 94 07/12/17 23:00 72 07/12/17 19:34 98.6 81 19 117/55 (75) 95 07/12/17 17:51 98.6 74 21 119/57 (77) 94 07/12/17 15:45 70 07/12/17 12:07 97.9 73 18 124/62 (82) 98 07/12/17 08:45 67 I/O 07/12/17 07/12/17 07/12/17 07/13/17 07/13/17 07/13/17 06:59 14:59 22:59 06:59 14:59 22:59 Output Total 1 ml Balance -1 ml Output Stool Total 1 ml # Voids 3 4 Result Diagram: 07/11/17232207/11/173 Imaging Last Impressions Neck CTA 07/12/17 0000 Signed Impressions: Service Date/Time: July 02:29 - CONCLUSION: No evidence of carotid stenosis. Juliocesar Poole MD Head CTA 07/12/17 0000 Signed Impressions: Service Date/Time: July 02:29 - CONCLUSION: Normal study Juliocesar Poole MD Head CT 07/11/170 Signed Impressions: Service Date/Time: Tuesday, July 11, 2017 22:34 - CONCLUSION: No acute intracranial findings. Sinus and left-sided mastoid disease Juliocesar Poole MD Objective Remarks GENERAL: Well-developed well-nourished. In no acute distress. SKIN: Warm and dry. No lesions noted. HEENT: Normocephalic. Pupils equal and round. Mucous membranes pink and moist. CARDIOVASCULAR: Regular rate and rhythm. No murmur appreciated. RESPIRATORY: No accessory muscle use. Clear to auscultation. Breath sounds equal bilaterally. GASTROINTESTINAL: Abdomen soft, non-tender, nondistended. Bowel sounds x4. MUSCULOSKELETAL: No obvious deformities. No clubbing or cyanosis. Trace edema. NEUROLOGICAL: Awake and alert. Moves upper and lower extremities spontaneously. Normal speech. No facial asymmetry. Strength 5/5 in the upper extremities and 3/5 in the lower extremities. PSYCHIATRIC: Appropriate mood and affect; insight and judgment normal. A/P Problem List: (1) TIA (transient ischemic attack) ICD Code: G45.9 - Transient cerebral ischemic attack, unspecified Status: Acute (2) Neuralgia ICD Code: M79.2 - Neuralgia and neuritis, unspecified Status: Chronic Assessment and Plan 67 y/o male with a history of HTN, HLD, COPD, and a BPH presented to the ED with complaints of left facial numbness. Transient left facial paresthesias and slurred speech: Possible TIA. Doesn't really sound like medication effect. Reviewed: Head CT shows no acute abnormalities. CTA neck shows no carotid stenosis. CTA head normal. Echocardiogram showed normal systolic function and EF 60-65 %. Hemoglobin A1c 5.8. -Consulted neurology, discussed with Dr. Ugalde, ideally would do brain MRI, however patient cannot have this due to neurostimulator, neurology recommends no further inpatient workup -Lipid profile results pending -Neuro checks -Continue aspirin and statin -PT/OT/ST. Case management to arrange [facility]. -DC IVF Recent diagnosis of probable Parkinson's disease: -Reconcile and resume home dose of Sinemet Hypertension: Chronic. BP is actually soft. -We'll continue to hold home antihypertensives and recommend patient continue to monitor his blood pressure at home and can resume it if systolic blood pressure persistently greater than 160, otherwise follow-up with PCP Other chronic medical conditions include COPD, chronic pain, depression, anxiety : Stable at this time and will continue home medications as indicated DVT prophylaxis: SCDs Discharge Planning Cleared by neurology for discharge. 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 Discharge home today. Problem Qualifiers (1) TIA (transient ischemic attack): Qualified Codes: G45.9 - Transient cerebral ischemic attack, unspecified Gregorio Marquez Jul 13, 2017 08:24
[2017-07-13 08:45] LABS: HDL CHOLESTEROL 60.9 MG/DL (40.0-60.0)
[2017-07-13] MEDS: CITALOPRAM HYDROBROMIDE 40 MG TAB PO SCH (09:00)
[2017-07-13] MEDS: SODIUM CHLORIDE 0.9% FLUSH 5 ML FLUSH IV FLUSH SCH (09:00)
[2017-07-13] MEDS: ASPIRIN 81 MG CHEW TAB CHEW SCH (10:28)
[2017-07-13] MEDS: ALBUTEROL SULFATE 90 MCG/ACT HFA 8 GM INHALER INH SCH (10:30)
[2017-07-13] MEDS: TIOTROPIUM BROMIDE 18 MCG INH INH SCH (10:31)
== END 2017-07-13 11:37 | disposition home or self-care (01) ==
LOC: NEPE 21:48 → NEDA 07-12 02:12 → NEPGCP 07-12 03:24
PROVIDERS: ADMIT Internal Medicine; ATTEND Internal Medicine
DX: G45.9 Transient cerebral ischemic attack, unspecified (principal); M79.2 Neuralgia and neuritis, unspecified; I10 Essential (primary) hypertension; J44.9 Chronic obstructive pulmonary disease, unspecified; E78.00 Pure hypercholesterolemia, unspecified; R60.0 Localized edema; R94.31 Abnormal electrocardiogram [ECG] [EKG]; M54.2 Cervicalgia; G89.29 Other chronic pain; F41.9 Anxiety disorder, unspecified; F03.90 Unspecified dementia, unspecified severity, without behavioral disturbance, psychotic disturbance, mood disturbance, and anxiety; F32.9 Major depressive disorder, single episode, unspecified; G20 Parkinson's disease; N40.0 Benign prostatic hyperplasia without lower urinary tract symptoms; Z79.899 Other long term (current) drug therapy; Z79.82 Long term (current) use of aspirin; Z87.891 Personal history of nicotine dependence; Z86.73 Personal history of transient ischemic attack (TIA), and cerebral infarction without residual deficits; Z96.643 Presence of artificial hip joint, bilateral; Z98.1 Arthrodesis status
CPT/HCPCS: 70450; 70496; 70498; 80048; 80061; 82948; 83036; 85025; 85610; 85730; 93005; 93306; 96360; 96361; G0378; G8987-GO; G8987-GP; G8988-GO; G8988-GP; G8989-GO; G8996-GN; G8997-GN; G8998-GN; J7030; Q0177; Q9967

== ENCOUNTER 2017-10-29 06:48 | Emergency (ER) | payer OTHER ==
[~2017-10-29] VITALS: Ht 170.2 cm; Wt 75.0 kg
[~2017-10-29 06:48] MED LIST changes: +ASPI-516 CHEW; -ASPI81CH CHEW; -CARV3.12 PO; -CLON1TAB PO; -DICL1GEL TOPICAL; -HYDR-3533 PO; -LISI2.5T3 PO; -SYMB160A INH; -TAMS5CAP PO; -TIMO0.255 EACH EYE; +VIST25CA PO; -WALKER WHEELS/F1 MIS
[2017-10-29 06:49] VITALS: BP 141/68; PULSE 112; RESP 16; TEMP 98.7; O2SAT 95
--- NOTE | 2017-10-29 08:06 | PD ---
HPI Chief Complaint: Injury Time Seen by Provider: 07:30 Travel History International Travel<30 days: No Contact w/Intl Traveler<30days: No Traveled to known affect area: No History of Present Illness HPI 67-year-old male presents to the verge department status post fall 3 days ago. Patient states he landed on the upper part of his lateral shoulder on the left. Patient had sudden onset pain and now has bruising on the top of the shoulder extending down into the pectoralis region. States he is able to move it was quite painful. Patient has pain medicine at home including Lortab which is been taking with fairly good relief. He is here to have it checked out. His hitting his head, neck pain, loss of consciousness, or shortness of breath. He has no tingling or weakness in the left arm other than from discomfort. Patient has no medication allergies. PFSH Past Medical History Anxiety: Yes High Cholesterol: Yes COPD: Yes Diminished Hearing: No Hypertension: Yes Musculoskeletal: Yes (chronic pain) Parkinson's Disease: Yes Past Surgical History Neurologic Surgery: Yes (neuro stimulator) Thoracic Surgery: Yes (L4 & L5 laminectomy) Other Surgery: Yes (MORPHINE PUMP) Social History Alcohol Use: No Tobacco Use: No Substance Use: No Allergies-Medications (Allergen,Severity, Reaction): Coded Allergies: MRI PRECAUTION (Verified Adverse Reaction, Severe, 07/30/17) Patient has a non compatible neurostimulator. Patient has a Rizwan mini [place] neurostimulator. 07/12/2017 Reported Meds & Prescriptions Reported Meds & Active Scripts Active [place] (Hydrocodone-Acetaminophen) 5-325 mg Tab 1 Tab PO Q6H PRN Reported Vistaril (Hydroxyzine Pamoate) 25 Mg Cap 25 Mg PO HS Spiriva [place] (Tiotropium Inh) 18 Mcg Cap 18 Mcg INH DAILY 1 capsule = 18 mcg Combivent Respimat Inh (Ipratropium-Albuterol Inh) 20-100 [place]/Act Aero 1 Puff INH QID Citalopram (Citalopram Hydrobromide) 40 Mg Tab 40 Mg PO DAILY Atorvastatin (Atorvastatin Calcium) 40 Mg Tab 40 Mg PO HS Aspirin 81 Mg Chew 81 Mg CHEW DAILY Review of Systems General / Constitutional: No: Fever Eyes: No: Visual changes HENT: No: Headaches Cardiovascular: No: Chest Pain or Discomfort Respiratory: No: Shortness of Breath Gastrointestinal: No: Abdominal Pain Genitourinary: No: Dysuria Musculoskeletal: Positive: Myalgias, Arthralgias, Limited ROM, Pain (see history present illness) Skin: No Rash Neurologic: No: Weakness Psychiatric: No: Depression Endocrine: No: Polydipsia Hematologic/Lymphatic: No: Easy Bruising Physical Exam Narrative GENERAL: Patient appears in [id number] distress per SKIN: Warm and dry. Patient is obvious large ecchymotic area to the left top of the shoulder dependent ecchymosis into the left pectoralis region. HEAD: Atraumatic. Normocephalic. EYES: Pupils equal and round. No scleral icterus. No injection or drainage. ENT: No nasal bleeding or discharge. Mucous membranes pink and moist. NECK: Trachea midline. No JVD. CARDIOVASCULAR: Regular rate and rhythm. RESPIRATORY: No accessory muscle use. Clear to auscultation. Breath sounds equal bilaterally. GASTROINTESTINAL: Abdomen soft, non-tender, nondistended. Hepatic and splenic margins not palpable. MUSCULOSKELETAL: Extremities without clubbing, cyanosis, or edema. There is no obvious deformity of the left shoulder. No significant swelling of the left shoulder. Patient has limited movement secondary to pain, so exam is limited. 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 NEUROLOGICAL: Awake and alert. No obvious cranial nerve deficits. Motor grossly within normal limits. Five out of 5 muscle strength in the arms and legs. Normal speech. PSYCHIATRIC: Appropriate mood and affect; insight and judgment normal. Data Data Last Documented VS Vital Signs Date Time Temp Pulse Resp B/P (MAP) Pulse Ox O2 Delivery O2 Flow Rate FiO2 10/29/17 06:49 98.7 112 16 141/68 (92) 95 Room Air Orders Orders Shoulder, Complete (>2vws) (10/29/17 07:31) Splint Or Brace Apply/Monitor (10/29/17 08:28) Ed Discharge Order (10/29/17 08:29) [facility] Medical Decision Making Medical Screen Exam Complete: Yes Emergency Medical Condition: Yes Differential Diagnosis Fall. Shoulder contusion. Possible fracture. Acromioclavicular separation. Narrative Course X-ray of the left shoulder is obtained. X-ray shows proximal clavicular fracture with mild displacement. Patient is placed in a sling with swath. Patient is to take Lortab as he has at home for pain as needed. Ice the area frequently, and follow up with his primary care physician. Patient may see orthopedist as necessary. Diagnosis Primary Impression: Closed left clavicular fracture Qualified Codes: S42.032A - Displaced fracture of lateral end of left clavicle , initial encounter for closed fracture Referrals: Orthopedist Primary Care Physician Patient Instructions: Clavicle Fracture (ED), General Instructions, How to Use a Sling (GEN) Additional Instructions: X-ray shows proximal clavicular fracture with mild displacement. Patient is placed in a sling with swath. Patient is to take Lortab as he has at home for pain as needed. Ice the area frequently, and follow up with his primary care physician. Patient may see orthopedist as necessary. Med/Other Pt SpecificInfo: No Change to Meds Disposition: 01 DISCHARGE HOME Condition: Stable Ariel Early Oct 29, 2017 08:06
--- NOTE | 2017-10-29 08:33 | RADRPT ---
EXAM DATE/TIME: 10/29/2017 07:59 [place] COMPARISON: No previous studies available for comparison. INDICATIONS : Fell last sunday, pain and loss of motion. MEDICAL HISTORY : AC seperation, Scoliosis, SURGICAL HISTORY : C3-T1 fusion, total hip ENCOUNTER: Initial ACUITY: 4 - 6 days PAIN SCORE: 10/10 LOCATION: Left shoulder FINDINGS: There is a fracture of the distal clavicle near the acromioclavicular joint with slight cephalad angu lation. Remaining osseous structures appear intact. Glenohumeral joint is anatomic. Visualized left l rafael is clear. Soft tissues are unremarkable. CONCLUSION: 1. Distal clavicle fracture near the acromioclavicular joint. Roby Abdi MD on October 29, 2017 at 8:27 Board Certified Radiologist. This report was verified electronically.
== END 2017-10-29 08:48 | disposition home or self-care (01) ==
LOC: NEPD 06:48
DX: S42.032A Displaced fracture of lateral end of left clavicle, initial encounter for closed fracture (principal); F41.9 Anxiety disorder, unspecified; E78.00 Pure hypercholesterolemia, unspecified; J44.9 Chronic obstructive pulmonary disease, unspecified; I10 Essential (primary) hypertension; G89.29 Other chronic pain; G20 Parkinson's disease; W19.XXXA Unspecified fall, initial encounter
CPT/HCPCS: 29240; 73030